=== PATIENT | male | born 1975 | race Caucasian/White ===

== ENCOUNTER 2019-05-17 14:19 | Emergency (ER) | payer SELFPAY ==
[2019-05-17] MEDS ORDERED: Morphine 4 MG/ML VIAL ONE (14:47)
[2019-05-17] MEDS ORDERED: Ketorolac Tromethamine 30 MG/ML VIAL ONE (14:48)
[2019-05-17 15:18] LABS: ALT (SGPT) 24 U/L (8-55); AST (SGOT) 18 U/L (5-34); Alkaline Phosphatase 150 U/L (40-110); Anion Gap 18 mmol/L (10-20); BUN (Urea Nitrogen) 11 mg/dL (8.9-20.6); Bilirubin, Total 0.9 mg/dL (0.2-1.2); Calc. Creatinine Clearance 0 mL/min (70-130); Calcium 9.9 mg/dL (7.8-10.44); Carbon Dioxide 23 mmol/L (22-29); Chloride 98 mmol/L (98-107); Estimated GFR-MDRD Greater than 90; Globulin 4.3 g/dL (2.4-3.5); Glucose 93 mg/dL (70-105); Hemoglobin 13.7 g/dL (14.0-18.0); Mean Corpuscular HGB CONC 33.8 g/dL (32.0-36.0); Mean Corpuscular Hemoglobin 30.1 pg (27.0-31.0); Mean Corpuscular Volume 89.1 fL (78.0-98.0); Mean Platelet Volume 7.3 fL (7.4-10.4); Platelet Count 303 thou/uL (130-400); Protein, Total 8.3 g/dL (6.0-8.3); RBC Distribution Width 12.2 % (11.5-14.5); Red Blood Cell (RBC) Count 4.55 mill/uL (4.70-6.10); Sodium 135 mmol/L (136-145); White Blood Cell (WBC) Count 21.4 thou/uL (4.8-10.8)
[2019-05-17 15:19] LABS: #Eosinphils 0.1 thou/uL (0.0-0.7); #Monocytes 0.9 thou/uL (0.11-0.59); #Neutrophils 18.4 thou/uL (1.40-6.50); %Basophils 0.5 % (0.0-1.0); %Eosinophils 0.3 % (0.0-10.0); %Monocytes 4.4 % (0.0-10.0); %Neutrophils 85.9 % (42.0-75.0)
[2019-05-17 15:20] LABS: #Basophils 0.1 thou/uL (0.0-0.2); MDiff Complete? YES
[2019-05-17 15:23] LABS: Band 0 % (5-11); Blast 0 % (0-0); Eosinophils 0 % (0-10); Lymphocytes 11 % (21-51); Metamyelocyte 0 % (0-0); Monocytes 3 % (0-10); Myelocyte 0 % (0-0); Neutrophil 86 % (42-75); Nucleated RBC 0 % (0); Promyelocytes 0 % (0-0); Reactive Lymphocytes 0 % (0-10)
[2019-05-17] MEDS ORDERED: cefTRIAXone\\ROCEPHIN 2 GM VIAL ONE (15:25)
[2019-05-17] MEDS ORDERED: Sodium Chloride 0.9% 100 ML ONE (15:26)
--- NOTE | 2019-05-17 16:13 | CT ---
CT ABDOMEN AND PELVIS WITHOUT CONTRAST: Date: 05-17-[address] renal stone protocol was done and compared with a 03-31-14 study. The exam was done to evaluate right flank pain. FINDINGS: The lung bases are clear. The liver is generous in size but otherwise showed no signs of space occupy ing disease. The spleen was upper normal at 13.4 cm in length. The adrenal glands and gallbladder keely wed no acute change. Bilateral nonobstructing renal calculi are seen. There is no sign of hydronephrosis. No mass was seen . No ureteral calculi were detected. No stones were seen within the urinary bladder. The bowel shows no distention or inflammatory changes around it. There is no bowel wall thickening. N o free air or free fluid was seen. CT of the pelvis shows no pelvic masses, fluid collections, or inflammatory changes. The lowest slice in the study suggests that the right testicle may be enlarged, but the finding cannot be commented o n further since it was only on the last slice. IMPRESSION: Bilateral nonobstructing renal calculi. POS: HOME
== END 2019-05-17 15:50 | disposition home or self-care (01) ==
LOC: BURERS 14:19
DX: N50.811 Right testicular pain (principal); F17.220 Nicotine dependence, chewing tobacco, uncomplicated
CPT/HCPCS: 74176; 80053; 85025; 96365; 96375; J0696; J1885; J2270; J3490

== ENCOUNTER 2020-02-12 11:10 | Emergency (ER) | payer SELFPAY ==
[2020-02-12] MEDS ORDERED: Ondansetron PF 4 MG/2 ML Vial ONE ×2 (11:27→11:28)
[2020-02-12] MEDS ORDERED: Ketorolac Tromethamine 30 MG/ML VIAL ONE (11:27)
[2020-02-12 11:46] LABS: #Basophils 0.1 thou/uL (0.0-0.2); #Eosinphils 0.4 thou/uL (0.0-0.7); #Lymphocytes 1.9 thou/uL (1.20-3.40); #Monocytes 0.7 thou/uL (0.11-0.59); #Neutrophils 11.2 thou/uL (1.40-6.50); %Basophils 0.6 % (0.0-1.0); %Eosinophils 2.6 % (0.0-10.0); %Lymphocytes 13.6 % (21.0-51.0); %Monocytes 4.6 % (0.0-10.0); %Neutrophils 78.6 % (42.0-75.0); Hemoglobin 14.6 g/dL (14.0-18.0); Mean Corpuscular HGB CONC 30.4 g/dL (32.0-36.0); Mean Corpuscular Hemoglobin 29.2 pg (27.0-31.0); Mean Corpuscular Volume 96.1 fL (78.0-98.0); Mean Platelet Volume 6.9 fL (7.4-10.4); Platelet Count 271 thou/uL (130-400); RBC Distribution Width 12.7 % (11.5-14.5); Red Blood Cell (RBC) Count 5.01 mill/uL (4.70-6.10); White Blood Cell (WBC) Count 14.2 thou/uL (4.8-10.8)
[2020-02-12 11:47] LABS: Bilirubin Small (Negative); Blood, Urine Large (Negative); Clarity Cloudy (Clear); Glucose, Urine (Dipstick) Negative (Negative); Ketone, Urine Negative (Negative); Leukocyte Small (Negative); Nitrite Negative (Negative); Protein, Urine (Dipstick) 30 mg/dL (Neg-Trace); Urobilinogen 0.2 mg/dL (Less than 2)
[2020-02-12 11:49] LABS: Specific Gravity, Urine 1.032 (1.002-1.036)
[2020-02-12 11:52] LABS: Bacteria/HPF 2+ HPF (None Seen); RBC/HPF 21-50 HPF (0-3); Squamous Epithelial 0-3 HPF (0-3); WBC/HPF Greater Than 50 HPF (0-3)
[2020-02-12 12:02] LABS: ALT (SGPT) 21 U/L (8-55); AST (SGOT) 19 U/L (5-34); Albumin 4.4 g/dL (3.5-5.0); Alkaline Phosphatase 80 U/L (40-110); Anion Gap 14 mmol/L (10-20); BUN (Urea Nitrogen) 18 mg/dL (8.9-20.6); Bilirubin, Total 0.5 mg/dL (0.2-1.2); Calc. Creatinine Clearance 0 mL/min (70-130); Calcium 9.3 mg/dL (7.8-10.44); Carbon Dioxide 27 mmol/L (22-29); Chloride 102 mmol/L (98-107); Estimated GFR-MDRD 71; Globulin 3.4 g/dL (2.4-3.5); Glucose 98 mg/dL (70-105); Lipase 21 U/L (8-78); Potassium 4.1 mmol/L (3.5-5.1); Protein, Total 7.8 g/dL (6.0-8.3); Sodium 139 mmol/L (136-145)
[2020-02-12] MEDS ORDERED: Morphine 4 MG/ML VIAL ONE (12:11)
== END 2020-02-12 13:57 | disposition home or self-care (01) ==
LOC: BURERS 11:10
DX: N30.00 Acute cystitis without hematuria (principal)
CPT/HCPCS: 80053; 81003; 81015; 83690; 85025; 96374; 96375; J1885; J2270; J2405

== ENCOUNTER 2020-12-08 15:28 | Emergency (ER) | payer SELFPAY ==
[2020-12-08] MEDS ORDERED: Boostrix 0.5 ML (Tdap) VIAL ONE (15:55)
[2020-12-08] MEDS ORDERED: HYDROcodone/Acetaminophen 5/325 mg Tablet ONE (15:55)
[2020-12-08] MEDS ORDERED: Sulfameth/Trimethoprim DS 800-160mg TAB ONE (15:55)
[2020-12-08] MEDS ORDERED: Ibuprofen 800 MG TAB ONE (15:55)
[2020-12-08] MEDS ORDERED: Bacitracin 1 PK ONE (15:55)
== END 2020-12-08 16:08 | disposition home or self-care (01) ==
LOC: BURERS 15:28
DX: L02.512 Cutaneous abscess of left hand (principal)
CPT/HCPCS: 90471; 90715

== ENCOUNTER 2024-02-19 06:49 | Emergency (ER) | payer OTHER, SELFPAY ==
[2024-02-19 07:08] LABS: #Basophils 0.1 thou/uL (0.0-0.2); #Eosinphils 0.3 thou/uL (0.0-0.7); #Lymphocytes 1.4 thou/uL (1.20-3.40); #Monocytes 0.7 thou/uL (0.11-0.59); #Neutrophils 8.5 thou/uL (1.40-6.50); %Basophils 0.8 % (0.0-1.0); %Eosinophils 2.5 % (0.0-10.0); %Lymphocytes 12.4 % (21.0-51.0); %Monocytes 6.4 % (0.0-10.0); %Neutrophils 77.9 % (42.0-75.0); Hematocrit 45.5 % (42.0-52.0); Hemoglobin 15.2 g/dL (14.0-18.0); Mean Corpuscular HGB CONC 33.4 g/dL (32.0-36.0); Mean Corpuscular Hemoglobin 28.9 pg (27.0-31.0); Mean Corpuscular Volume 86.4 fl (78.0-98.0); Mean Platelet Volume 7.3 fL (7.4-10.4); Platelet Count 274 10x3/uL (130-400); RBC Distribution Width 11.6 % (11.5-14.5); Red Blood Cell (RBC) Count 5.27 mill/uL (4.70-6.10)
[2024-02-19 07:23] LABS: ALT (SGPT) 16 U/L (8-55); AST (SGOT) 19 U/L (5-34); Alkaline Phosphatase 80 U/L (40-110); Anion Gap 13 mmol/L (10-20); BUN (Urea Nitrogen) 12 mg/dL (8.9-20.6); Bilirubin, Total 0.9 mg/dL (0.2-1.2); Calc. Creatinine Clearance 0 mL/min (70-130); Calcium 9.7 mg/dL (7.8-10.44); Carbon Dioxide 26 mmol/L (22-29); Chloride 104 mmol/L (98-107); Estimated GFR 62; Glucose 118 mg/dL (70-105); Potassium 3.9 mmol/L (3.5-5.1); Sodium 139 mmol/L (136-145)
[2024-02-19 08:27] LABS: Bilirubin Negative (Negative); Blood, Urine Small (Negative); Glucose, Urine (Dipstick) Negative (Negative); Ketone, Urine Negative (Negative); Leukocyte Small (Negative); Nitrite Negative (Negative); Protein, Urine (Dipstick) Negative (Neg-Trace); Urobilinogen 0.2 mg/dL (Less than 2); pH, Urine 7.5 (5.0-9.0)
[2024-02-19 08:33] LABS: Clarity Hazy (Clear)
[2024-02-19 08:34] LABS: Bacteria/HPF 1+ HPF (None Seen); CAUTI Indications for Culture Dysuria,urgency,freq; Squamous Epithelial 0-3 HPF (0-3); WBC/HPF Greater Than 50 HPF (0-3)
[2024-02-19 08:35] LABS: Urine Culture Reflex Yes Yes
[2024-02-19] MEDS ORDERED: Ketorolac Tromethamine 30 MG (1 mL) VIAL ONE (12:19)
[2024-02-19] MEDS ORDERED: Ondansetron PF 4 MG/2 ML Vial ONE (12:19)
== END 2024-02-19 08:52 | disposition home or self-care (01) ==
LOC: BURERS 06:49
DX: N13.2 Hydronephrosis with renal and ureteral calculous obstruction (principal); N39.0 Urinary tract infection, site not specified
CPT/HCPCS: 36415; 74176; 80053; 81001; 85025; 87086; 96374; 96375; J1885; J2405